=== PATIENT | male | born 1955 | race Caucasian/White ===

== ENCOUNTER 2023-07-24 15:08 | Emergency (ER) | payer OTHER, MEDICAID ==
[~2023-07-24] VITALS: Ht 160 cm; Wt 89.8 kg
[2023-07-24 15:12] VITALS: BP_SYST 139; PULSE 96; RESP 18; TEMP 98.3; O2SAT 95
[2023-07-24 16:30] LABS: BASOPHILS % (AUTO) 0.5 % (0.0-2.0); EOSINOPHILS # (AUTO) 0.4 K/uL (0.0-0.4); EOSINOPHILS % (AUTO) 5.4 % (0.0-4.0); HEMOGLOBIN 14.7 g/dL (14.0-18.0); LYMPHOCYTES # (AUTO) 2.3 K/uL (1.0-5.5); LYMPHOCYTES % (AUTO) 28.5 % (20.5-51.5); MEAN CORPUSCULAR HEMOGLOBIN 30 pg (27-31); MEAN CORPUSCULAR HGB CONC 33 % (32-36); MEAN CORPUSCULAR VOLUME 92 fL (79.0-98.0); MONOCYTES # (AUTO) 0.5 K/uL (0.0-1.0); NEUTROPHILS # (AUTO) 4.9 K/uL (1.8-7.7); NEUTROPHILS % (AUTO) 59.6 % (40.0-70.0); PLATELET COUNT (AUTO) 164 K/uL (130-430); RED BLOOD CELL COUNT(AUTO) 4.86 MIL/uL (4.2-6.2); RED CELL DISTRIBUTION WIDTH 13.6 % (9.0-15.0); WHITE BLOOD COUNT (AUTO) 8.2 K/uL (4.8-10.8)
[2023-07-24 16:33] LABS: ANION GAP 9 (5-15); CALCIUM 9.5 mg/dL (8.4-11.0); CARBON DIOXIDE 29 mmol/L (23-29); CHLORIDE 102 mmol/L (98-107); CREATININE 0.85 mg/dL (0.55-1.30); GFR AFRICAN AMERICAN 115 mL/min (>90); GFR NON AFRICAN-AMERICAN 95 mL/min (>90); GLUCOSE 123 mg/dL (74-106); POTASSIUM 3.9 mmol/L (3.5-5.1); SODIUM SERUM 140 mmol/L (136-145); UREA NITROGEN, BLOOD 18 mg/dL (8-21)
[2023-07-24 16:40] LABS: INFLUENZA TYPE A negative (NEGATIVE); INFLUENZA TYPE B NEGATIVE (NEGATIVE)
[2023-07-24 16:40] LABS: ALANINE AMINOTRANSFERASE 20 U/L (12-78); ALBUMIN 4.2 g/dL (3.4-4.8); ASPARTATE AMINOTRANSFERASE 23 U/L (10-37); TOTAL BILIRUBIN 2.4 mg/dL (0.0-1.0)
[2023-07-24 19:45] VITALS: BP_SYST 134; PULSE 88; RESP 16; TEMP 98.3; O2SAT 97
== END 2023-07-24 19:45 | disposition home or self-care (01) ==
LOC: SED 15:08
DX: R07.9 Chest pain, unspecified (principal); R10.13 Epigastric pain; R06.02 Shortness of breath; Z79.899 Other long term (current) drug therapy; Z20.822 Contact with and (suspected) exposure to COVID-19
CPT/HCPCS: 36415; 71045; 76705; 80053; 83880; 84484; 85025; 93005; 99285